=== PATIENT | female | born 1965 | race Two or more races ===

== ENCOUNTER 2017-02-27 13:40 | Emergency (ER) | payer OTHER ==
[~2017-02-27] VITALS: Ht 152.4 cm; Wt 74.0 kg
[2017-02-27 13:53] VITALS: Ht 152.4 cm; Wt 74.0 kg
[2017-02-27 15:59] VITALS: BP 108/65
== END 2017-02-27 15:59 | disposition home or self-care (01) ==
LOC: ED 13:40
DX: J11.1 Influenza due to unidentified influenza virus with other respiratory manifestations (principal); N93.9 Abnormal uterine and vaginal bleeding, unspecified
CPT/HCPCS: 82962; 87804; J7030